=== PATIENT | male | born 1970 | race Caucasian/White ===

== ENCOUNTER 2019-01-24 17:43 | Emergency (ER) | payer OTHER, MEDICAID ==
[~2019-01-24] VITALS: Ht 182.9 cm; Wt 65.9 kg
[2019-01-24 17:53] VITALS: Ht 182.9 cm; Wt 65.9 kg
[2019-01-24] MEDS ORDERED: PRO AIR PO (17:56)
[2019-01-24] MEDS ORDERED: IPRAT-ALBUT 0.5-3 ML UPD (17:56)
[2019-01-24] MEDS ORDERED: FLUTICASONE PRO16 GM NASAL (17:56)
[2019-01-24] MEDS ORDERED: SYMBICORT 16010.2 GM INH (17:56)
[2019-01-24 18:32] LABS: BASOPHILS 0.7 % (0-2); EOSINOPHILS 2.2 % (0-7); HEMATOCRIT 51.3 % (42.0-54.0); HEMOGLOBIN 17.8 g/dL (13.5-17.5); IMMATURE GRANULOCYTES 0.7 % (0-5); LYMPHOCYTES 22.8 % (15-50); MCH 31.5 pg (26.0-34.0); MCHC 34.7 g/dL (31.0-37.0); MCV 90.8 fL (80.0-100.0); MEAN PLATELET VOLUME 11.4 fL (7.4-10.4); MONOCYTES 8.4 % (2-11); NEUTROPHILS 65.2 % (40-80); PLATELET COUNT 198 10x3/uL (130-400); RBC 5.65 10x6/uL (4.20-6.10); RDW 14.6 % (11.5-14.5); WBC 11.9 10x3/uL (4.8-10.8)
[2019-01-24 18:49] LABS: ALBUMIN 3.8 g/dL (3.4-5.0); ANION GAP 12.7 mmol/L (8-16); BILIRUBIN - TOTAL 0.17 mg/dL (0.2-1.3); CREATININE - SERUM 1.6 mg/dL (0.6-1.3); POTASSIUM - SERUM 3.7 mmol/L (3.5-5.1); PROTEIN - SERUM 7.2 g/dL (6.4-8.2)
[2019-01-24 19:20] LABS: CREATINE KINASE 115 UL (21-232); LIPASE 219 U/L (73-393)
[2019-01-24] MEDS ORDERED: FLAGYL500 MG PO (20:35)
[2019-01-24 20:41] LABS: APPEARANCE CLEAR (CLEAR); BILIRUBIN NEGATIVE (NEGATIVE); COLOR YELLOW (YELLOW); GLUCOSE NEGATIVE (NEGATIVE); KETONE NEGATIVE (NEGATIVE); NITRITE NEGATIVE (NEGATIVE); PROTEIN NEGATIVE (NEGATIVE); UROBILINOGEN NORMAL (NORMAL)
[2019-01-24 22:05] VITALS: BP 97/69
[2019-01-26] MEDS ORDERED: LEVOFLOXACIN500 MG PO (19:21)
[2019-01-26] MEDS ORDERED: MEDROL DOSE PACK4 MG PO (19:21)
[2019-01-26] MEDS ORDERED: MUCINEX600 MG PO (19:21)
== END 2019-01-24 22:06 | disposition other institution (70) ==
LOC: D.ER 17:43
PROVIDERS: Family Medicine
DX: K52.9 Noninfective gastroenteritis and colitis, unspecified (principal); R10.32 Left lower quadrant pain; R10.31 Right lower quadrant pain; E88.01 Alpha-1-antitrypsin deficiency; R03.1 Nonspecific low blood-pressure reading

== ENCOUNTER → 2019-01-26 | Emergency (ER) | payer OTHER, MEDICAID ==
[~2019-01-26] VITALS: Ht 182.9 cm; Wt 61.4 kg
[~2019-01-26] MED LIST: FLAGYL500 MG PO; FLUTICASONE PRO16 GM NASAL; IPRAT-ALBUT 0.5-3 ML UPD; LEVOFLOXACIN500 MG PO; MEDROL DOSE PACK4 MG PO; MUCINEX600 MG PO; PRO AIR PO; SYMBICORT 16010.2 GM INH
[2019-01-26 18:29] VITALS: Ht 182.9 cm; Wt 61.4 kg
[2019-01-26 19:56] LABS: APPEARANCE CLEAR (CLEAR); BILIRUBIN NEGATIVE (NEGATIVE); COLOR YELLOW (YELLOW); GLUCOSE NEGATIVE (NEGATIVE); KETONE NEGATIVE (NEGATIVE); NITRITE NEGATIVE (NEGATIVE); PROTEIN NEGATIVE (NEGATIVE); UROBILINOGEN NORMAL (NORMAL); WHITE CELLS - URINE OCC /hpf (0-5)
[2019-01-26 20:04] LABS: BASOPHILS 0.7 % (0-2); EOSINOPHILS 0.8 % (0-7); HEMATOCRIT 51.7 % (42.0-54.0); HEMOGLOBIN 17.9 g/dL (13.5-17.5); IMMATURE GRANULOCYTES 0.5 % (0-5); LYMPHOCYTES 18.6 % (15-50); MCH 31.2 pg (26.0-34.0); MCHC 34.6 g/dL (31.0-37.0); MCV 90.2 fL (80.0-100.0); MEAN PLATELET VOLUME 11.3 fL (7.4-10.4); NEUTROPHILS 69.4 % (40-80); RBC 5.73 10x6/uL (4.20-6.10); RDW 14.8 % (11.5-14.5); WBC 9.1 10x3/uL (4.8-10.8)
[2019-01-26 20:11] LABS: PLATELET COUNT 154 10x3/uL (130-400)
[2019-01-26 20:12] LABS: APTT 28.8 SECONDS (22.8-39.4); PROTIME 12.7 SECONDS (11.6-15.0)
[2019-01-26 20:29] LABS: ALBUMIN 4.7 g/dL (3.4-5.0); ALKALINE PHOSPHATASE 92 U/L (46-116); ALT (SGPT) 13 U/L (10-68); BILIRUBIN - TOTAL 0.28 mg/dL (0.2-1.3); CALC OSMOLALITY 282 mosm/kg (275-300); CALCIUM 9.4 mg/dL (8.5-10.1); CARBON DIOXIDE 31.4 mmol/L (21.0-32.0); CHLORIDE - SERUM 99 mmol/L (98-107); CREATININE - SERUM 1.2 mg/dL (0.6-1.3); GLUCOSE 104 mg/dL (74-106); POTASSIUM - SERUM 3.5 mmol/L (3.5-5.1); PROTEIN - SERUM 8.1 g/dL (6.4-8.2); SODIUM 141 mmol/L (136-145); UREA NITROGEN 18 mg/dL (7-18); eGFR NON AFRICAN AMERICAN 68 mL/min (90-120)
[2019-01-26 20:40] LABS: CKMB 1.9 U/L (0.0-3.6); CREATINE KINASE 147 UL (21-232); PRO BNP 25 pg/mL (0-125); TROPONIN-I < 0.017 ng/mL (0.000-0.060)
[2019-01-26 20:59] VITALS: BP 124/83
== END | disposition home or self-care (01) ==
LOC: D.ER 18:23
PROVIDERS: Emergency Medicine
DX: J44.9 Chronic obstructive pulmonary disease, unspecified (principal)

== ENCOUNTER 2019-02-19 19:29 | Inpatient (IN) | payer OTHER, MEDICAID ==
[2019-02-19] MEDS ORDERED: STERAPRED 5MG 125 MG PO (19:38)
[2019-02-19] MEDS ORDERED: AMBIEN5 MG PO (19:38)
[2019-02-19] MEDS ORDERED: TYLENOL #4 W/CO1 TAB PO (19:38)
[2019-02-19 20:08] LABS: BASOPHILS 0 % (0-2); EOSINOPHILS 0 % (0-7); HEMATOCRIT 48.6 % (42.0-54.0); HEMOGLOBIN 16.7 g/dL (13.5-17.5); IMMATURE GRANULOCYTES 0.5 % (0-5); LYMPHOCYTES 9.6 % (15-50); MCH 31.5 pg (26.0-34.0); MCHC 34.4 g/dL (31.0-37.0); MCV 91.7 fL (80.0-100.0); MEAN PLATELET VOLUME 11.6 fL (7.4-10.4); MONOCYTES 7.3 % (2-11); NEUTROPHILS 82.6 % (40-80); PLATELET COUNT 156 10x3/uL (130-400); RDW 15.3 % (11.5-14.5); WBC 11.1 10x3/uL (4.8-10.8)
[2019-02-19 20:15] LABS: INR 1.08 (0.85-1.17); PROTIME 13.5 SECONDS (11.6-15.0)
[2019-02-19 20:17] LABS: D-DIMER-QUANTITATIVE 0.6 ug/mLFEU (0.20-0.54)
[2019-02-19 20:20] LABS: ALKALINE PHOSPHATASE 71 U/L (46-116); ALT (SGPT) 12 U/L (10-68); BILIRUBIN - TOTAL 0.33 mg/dL (0.2-1.3); CALC OSMOLALITY 287 mosm/kg (275-300); CALCIUM 8.9 mg/dL (8.5-10.1); CHLORIDE - SERUM 104 mmol/L (98-107); CREATININE - SERUM 2.1 mg/dL (0.6-1.3); GLUCOSE 121 mg/dL (74-106); PROTEIN - SERUM 7.3 g/dL (6.4-8.2); SODIUM 142 mmol/L (136-145); UREA NITROGEN 23 mg/dL (7-18); eGFR NON AFRICAN AMERICAN 36 mL/min (90-120)
[2019-02-19 20:30] VITALS: BP 91/67
[2019-02-19 20:31] LABS: CREATINE KINASE 154 UL (21-232); PRO BNP 99 pg/mL (0-125)
[2019-02-19 20:32] LABS: TROPONIN-I < 0.017 ng/mL (0.000-0.060)
[2019-02-20] VITALS: BP 96/59
--- NOTE | 2019-02-20 02:00 | NUR ---
IV RESITED TO R HAND. OLD IV REMOVED WITH CATH TIP INTACT.
[2019-02-20 02:36] VITALS: BP 114/57; BMI 18.3
[2019-02-20 03:00] VITALS: BP 96/57
--- NOTE | 2019-02-20 03:02 | NUR ---
I have reviewed this patient and I concur with the Shift Assessment completed by the Licensed Practical Nurse today this shift.
--- NOTE | 2019-02-20 07:00 | NUR ---
RECEIVED REPORT. ASSUMED CARE OF PATIENT. PATIENT WITH EYES CLOSED, RESTING ON RIGHT LATERAL SIDE. RESP EVEN AND UNLABORED, CALL LIGHT WITHIN REACH. NO DISTRESS.
[2019-02-20 07:56] LABS: BASOPHILS 0 % (0-2); EOSINOPHILS 0 % (0-7); HEMATOCRIT 45.5 % (42.0-54.0); HEMOGLOBIN 15.8 g/dL (13.5-17.5); IMMATURE GRANULOCYTES 0.4 % (0-5); LYMPHOCYTES 9.2 % (15-50); MCH 31.3 pg (26.0-34.0); MCHC 34.7 g/dL (31.0-37.0); MCV 90.3 fL (80.0-100.0); MEAN PLATELET VOLUME 11.4 fL (7.4-10.4); MONOCYTES 3.9 % (2-11); NEUTROPHILS 86.5 % (40-80); PLATELET COUNT 158 10x3/uL (130-400); RBC 5.04 10x6/uL (4.20-6.10); RDW 15.2 % (11.5-14.5)
[2019-02-20 08:03] LABS: WBC 7.6 10x3/uL (4.8-10.8)
[2019-02-20 08:24] LABS: ANION GAP 23.8 mmol/L (8-16); CALCIUM 9.1 mg/dL (8.5-10.1); CREATININE - SERUM 2.1 mg/dL (0.6-1.3); POTASSIUM - SERUM 4.2 mmol/L (3.5-5.1)
[2019-02-20 08:26] LABS: CARBON DIOXIDE 20.4 mmol/L (21.0-32.0)
[2019-02-20 08:32] VITALS: BP 93/55
[2019-02-20 12:27] VITALS: BP 108/61
--- NOTE | 2019-02-20 12:39 | NUR ---
OBTAINED NEW ORDER FOR REGULAR DIET AT 1220 FROM DARRIUS DE ANDA.
--- NOTE | 2019-02-20 15:24 | NUR ---
ULTRASOUND AT BEDSIDE COMPLETING ECHO AT THIS TIME. NO DISTRESS.
--- NOTE | 2019-02-20 17:07 | NUR ---
PATIENT OFF UNIT TO NUCLEAR IMAGING AT THIS TIME FOR SCAN.
--- NOTE | 2019-02-20 17:19 | NUR ---
RETURNED FROM IMAGING AT THIS TIME. NO DISTRESS. CONSUMING PM MEAL.
--- NOTE | 2019-02-20 17:52 | NUR ---
MEDICATED FOR PAIN FOR INGUINAL HERNIA AT THIS TIME. NO DISTRESS.
--- NOTE | 2019-02-20 18:30 | NUR ---
RESTING IN BED. NO DISTRESS. CALL LIGHT PREETHI ANGULO.
--- NOTE | 2019-02-20 19:05 | NUR ---
PT ON PHONE AND SIGNALS ME OUT OF ROOM
--- NOTE | 2019-02-20 20:14 | NUR ---
RETURN TO EXAMINE PT LCTA AND SKIN WARM AND DRY IV TO RT HAND IS WNL...BED IS LOCKED LOW AND CALL LIGHT IS IN REACH
[2019-02-20 20:26] VITALS: BP 113/70
--- NOTE | 2019-02-21 03:19 | NUR ---
I have reviewed this patient and I concur with the Shift Assessment completed by the Licensed Practical Nurse today this shift.
[2019-02-21 05:55] VITALS: BP 95/56
[2019-02-21 08:08] VITALS: BP 117/66
[2019-02-21] MEDS ORDERED: KLONOPIN1 MG PO (11:27)
[2019-02-21 12:08] VITALS: BP 100/58
[2019-02-21 13:16] VITALS: BMI 18.7
--- NOTE | 2019-02-21 19:03 | MORECARE ---
CASE MANAGEMENT DISCHARGE SUMMARY PATIENT: MARILU SINGH UNIT: [id number] ADM DATE: 02/19/19 AGE: 49 : 68 SEX: M ROOM/BED: D.2136 AUTHOR: SHALONDA RAMOS PHYSICIAN: REFERRING PHYSICIAN: OLIVIA PHILIPPE MD DATE OF SERVICE: 02/21/19 Discharge Plan Patient Name: MARILU SINGH [facility] [facility] 1970 Planned Disposition: Home Anticipated Discharge Date: Discharge Date: Expected LOS: Initial Reviewer: [email or web address] Initial Review Date: 02/20/2019 Generated: 02/21/19 8:03 pm DCPIA - Discharge Planning Initial Assessment Updated by [email or web address]: Marta Jones on 02/21/19 7:03 pm * Is the patient Alert and Oriented? Yes * How many steps to enter\exit or inside your home? 2 w/ rail * PCP DR Bess Yoon * Pharmacy [facility] in [place] Will have mail order service soon * Preadmission Environment Home with Family * ADLs Independent * Equipment Nebulizer Oxygen * Other Equipment stationary and portable oxygen units * List name and contact numbers for known caregivers / representatives who currently or will assist patient after discharge: [facility]- [phone] * Verbal permission to speak to the caregivers and representatives has been obtained from the patient. No * Community resources currently utilized None * Please name any agencies selected above. N/A * Additional services required to return to the preadmission environment? No * Can the patient safely return to the preadmission environment? Yes * Has this patient been hospitalized within the prior 30 days at any hospital? Yes Patient Name: MARILU SINGH Page 55093 at 1903 All edits/amendments must be made on the electronic document DICTATION DATE: 02/21/191901 METAL NUMERICAL TOOL PROGRAMMER: GOVIND 02/21/191901 RPT#: [id number] DC DATE: STATUS: ADM IN [facility] [address] [place] [address] END OF REPORT
--- NOTE | 2019-02-21 19:23 | MORECARE ---
CASE MANAGEMENT DISCHARGE SUMMARY PATIENT: MARILU SINGH UNIT: [id number] ADM DATE: 02/19/19 AGE: 49 : 68 SEX: M ROOM/BED: D.2136 AUTHOR: RACHEL,DOC PHYSICIAN: REFERRING PHYSICIAN: OLIVIA PHILIPPE MD DATE OF SERVICE: 02/21/19 Discharge Plan Patient Name: MARILU SINGH Facility: [facility]:[place] : 1970 Planned Disposition: Home Anticipated Discharge Date: Discharge Date: Expected LOS: Initial Reviewer: [email or web address] Initial Review Date: 02/20/2019 Generated: 02/21/19 8:23 pm Comments DCP- Discharge Planning Updated by [email or web address]: Marta Jones on 02/21/19 6:[address] CM MET WITH THE PATIENT AT HIS BEDSIDE. EXPLAINED CM ROLE AND REQUESTED PERMISSION TO PROCEED WITH THE ASSESSMENT. PATIENT GAVE PERMISSION. PATIENT LIVES IN [place] WITH HIS . SHE IS RECOVERING FROM HIP SURGERY. HE DOES NOT UTILIZE AND H/H OR COMMUNITY SERVICES. THERE ARE 2 STEPS TO ENTER HIS HOME W/ A RAILING. HE IS INDEPENDENT IN HIS CARE. ASSIST WITH COOKING AND CLEANING. HE HAS A SON, WALLY, WHO ASSIST WHEN HE CAN. HE LIVES IN [place]. THE SON AND HIS AND HIS FAMILY WERE VACATIONING IN [place]. THEY ARE RETURNING TO HOME. THE PATIENT WAS RECENTLY DISCHARGED FROM [facility] IN [place]. HE WAS MOWING HIS YARD POST DISCHARGE.AND HAD RETURN OF SX'S. PATIENT HAS PORTABLE AND STATIONARY OXYGEN UNITS AND NEBULIZER FOR DUONEB UPDRAFTS. HE IS ON NASAL O2 AT 2/L AT HOME. DME PROVIDER - [facility] IN [place] , NEAR THE HOSPITAL. PCP- DR ANDERS [facility]YE[facility] [place] PATIENT DOES NOT FEEL HE WILL REQUIRE ANY SERVICES AT DISCHARGE. HIS SISTER OR A FRIEND IN [place] CAN PROVIDE TRANSPORTATION TO HOME. HE IS ANXIOUS TO DISCHARGE TO HOMEAS HE IS CONCERNED ABOUT HIS . HE IS WELL INFORMED ABOUT HIS DX AND MEDICAL CARE. CM WILL FOLLOW TO ASSIST NEEDED. DCPIA - Discharge Planning Initial Assessment Updated by [email or web address]: Marta Jones on 02/21/19 7:03 pm * Is the patient Alert and Oriented? Yes * How many steps to enter\exit or inside your home? 2 w/ rail * PCP DR Anders Yoon * Pharmacy [facility] in [place] Will have mail order service soon * Preadmission Environment Home with Family * ADLs Independent * Equipment Nebulizer Oxygen * Other Equipment stationary and portable oxygen units * List name and contact numbers for known caregivers / representatives who currently or will assist patient after discharge: Wally cunha- [phone] * Verbal permission to speak to the caregivers and representatives has been obtained from the patient. No * Community resources currently utilized None * Please name any agencies selected above. N/A * Additional services required to return to the preadmission environment? No * Can the patient safely return to the preadmission environment? Yes * Has this patient been hospitalized within the prior 30 days at any hospital? Yes Last DP export: 02/21/19 6:03 p Patient Name: MARILU SINGH Page [id number] at 1923 All edits/amendments must be made on the electronic document DICTATION DATE: 02/21/191921 SOCIAL MEDIA SR STRATEGY MANAGER: GOVIND 02/21/191921 RPT#: [id number] DC DATE: STATUS: ADM IN [facility] [address] [place] [address] END OF REPORT
[2019-02-21 22:04] VITALS: BP 120/57
[2019-02-22 00:04] VITALS: BP 117/71
--- NOTE | 2019-02-22 03:00 | NUR ---
PT STATES CHEST PAIN 8 OUT OF 10. PT VITALS STABLE. PT HAS SOME SOB. WILL CALL DOCTOR. WILL FALLOW UP.
--- NOTE | 2019-02-22 03:45 | NUR ---
MORPHINE GIVEN FOR CHEST PAIN PER DR ORDER. CARDIAC WORK UP ORDER PUT IN FOR LAB. EKG IN PROCESS. WILL FALLOW UP.
--- NOTE | 2019-02-22 04:28 | NUR ---
I have reviewed this patient and I concur with the Shift Assessment completed by the Licensed Practical Nurse today this shift.
[2019-02-22 05:42] LABS: BASOPHILS 0 % (0-2); EOSINOPHILS 0 % (0-7); HEMATOCRIT 42.2 % (42.0-54.0); HEMOGLOBIN 14.2 g/dL (13.5-17.5); IMMATURE GRANULOCYTES 0.3 % (0-5); LYMPHOCYTES 4.7 % (15-50); MCH 30.3 pg (26.0-34.0); MCHC 33.6 g/dL (31.0-37.0); MEAN PLATELET VOLUME 11.4 fL (7.4-10.4); MONOCYTES 4.6 % (2-11); NEUTROPHILS 90.4 % (40-80); PLATELET COUNT 130 10x3/uL (130-400); RBC 4.69 10x6/uL (4.20-6.10); RDW 14.7 % (11.5-14.5)
[2019-02-22 05:55] VITALS: BP 112/54
[2019-02-22 06:25] LABS: WBC 12.1 10x3/uL (4.8-10.8)
--- NOTE | 2019-02-22 07:00 | NUR ---
RECEIVED REPORT. ASSUMED CARE OF PATIENT. NO DISTRESS. PATIENT STATES HE GOT HIS IV CAUGHT ON THE DOOR. CATHETER TIP DISLODGED. NO BLEEDING. CALL LIGHT WITHIN REACH. NO DISTRESS.
[2019-02-22 07:04] LABS: ALBUMIN 3.4 g/dL (3.4-5.0); ALKALINE PHOSPHATASE 57 U/L (46-116); ALT (SGPT) 16 U/L (10-68); BILIRUBIN - TOTAL 0.36 mg/dL (0.2-1.3); CALCIUM 8.7 mg/dL (8.5-10.1); CARBON DIOXIDE 25.4 mmol/L (21.0-32.0); CHLORIDE - SERUM 102 mmol/L (98-107); POTASSIUM - SERUM 3.9 mmol/L (3.5-5.1); PROTEIN - SERUM 6.3 g/dL (6.4-8.2); SODIUM 139 mmol/L (136-145); UREA NITROGEN 19 mg/dL (7-18); eGFR NON AFRICAN AMERICAN 75 mL/min (90-120)
[2019-02-22 07:08] LABS: CALC OSMOLALITY 284 mosm/kg (275-300); CREATININE - SERUM 1.1 mg/dL (0.6-1.3); GLUCOSE 180 mg/dL (74-106)
[2019-02-22 07:18] LABS: CREATINE KINASE 107 UL (21-232); TROPONIN-I < 0.017 ng/mL (0.000-0.060)
--- NOTE | 2019-02-22 07:20 | NUR ---
20 GAUGE REMOVED FROM RIGHT HAND PATIENT DISLODGED CATHETER. CATHETER TIP INTACT. NO BLEEDING FROM SITE. 2X2 GAUZE APPLIED AND SECURED WITH TAPE. 20 GAUGE IV PLACED TO RIGHT FOREARM X 1 STICK. GOOD BLOOD RETURN, EASY FLUSH. TOLERATED IV PLACEMENT WELL. TAPED, DATED,AND SECURED. NO DISTRESS. RESTING IN BED, AWAITING ON AM MEAL.
[2019-02-22 07:42] VITALS: BP 107/56
--- NOTE | 2019-02-22 11:19 | NUR ---
RESTING IN BED. SHOWER COMPLETE. NO DISTRESS. CALL LIGHT WITHIN REACH. WAITING FOR DISCHARGE INSTRUCTIONS FROM PRIMARY.
[2019-02-22 11:25] VITALS: BP 117/73
[2019-02-22 11:37] LABS: CKMB 1.5 U/L (0.0-3.6); CREATINE KINASE 125 UL (21-232); TROPONIN-I < 0.017 ng/mL (0.000-0.060)
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
--- NOTE | 2019-02-22 12:03 | NUR ---
KIRBY IS PUTTING IN DISCHARGE ORDER FOR PATIENT AT THIS TIME.
[2019-02-22] MEDS ORDERED: MUCINEX DM ER1 EAC1 PO (12:15)
[2019-02-22] MEDS ORDERED: TESSALON PERLE100 MG PO (12:15)
[2019-02-22] MEDS ORDERED: SINGULAIR10 MG PO (12:15)
[2019-02-22] MEDS ORDERED: PREDNISONE10 MG PO (12:17)
[2019-02-22] MEDS ORDERED: ALBUTEROL SULF8.5 GM INH (12:17)
--- NOTE | 2019-02-22 12:33 | NUR ---
PATIENT LEFT AMA. PATIENT NOT IN ROOM, TELEMETRY ON BED ALONG WITH SCRUBS THAT PATIENT BORROWED FROM HOSPITAL. PATIENT FOUND DOWNSTAIRS SITTING ON BENCH OUT FRONT OF HOSPITAL. PATIENT STATED HE HAS A RIDE COMING TO PICK HIM UP. PATIENT TOOK HIS OWN IV OUT OF RIGHT FOREARM AND PLACED IT IN THE TRASH. THIS WIRE DRAWING SETTER FOUND IV IN TRASH. CATHETER TIP INTACT. HAND MOLD MAKER AND CHARGE NURSE AWARE OF PATIENT LEAVING AMA.
--- NOTE | 2019-02-22 13:57 | MORECARE ---
CASE MANAGEMENT DISCHARGE SUMMARY PATIENT: MARILU SINGH UNIT: [id number] ADM DATE: 02/19/19 AGE: 49 : 68 SEX: M ROOM/BED: D.2136 AUTHOR: RACHEL,DOC PHYSICIAN: REFERRING PHYSICIAN: OLIVIA PHILIPPE MD DATE OF SERVICE: 02/22/19 Discharge Plan Patient Name: MARILU SINGH Facility: [facility]:[place] : 1970 Planned Disposition: Home Anticipated Discharge Date: 02/22/19 Discharge Date: 02/22/2019 Expected LOS: 3 Initial Reviewer: [email or web address] Initial Review Date: 02/20/2019 Generated: 02/22/19 2:57 pm Comments DCP- Discharge Planning Updated by [id number]: Jose Elias Rudd on 02/22/19 12:[address] Patient Name: MARILU SINGH Encounter No: [id number] : 1970 Primary Insurance: [id number] Anticipated DC Date: 02-22-2019 Planned Disposition: LEFT AGAINST MEDICAL ADVICE DCP follow-up note: CM RECEIVED DISCHARGE ORDER, ATTEMPTED TO MEET WITH PT IN REGARDS TO ANY NEEDS FOR DISCHARGE HOME AND PROVIDE IMPORTANT MESSAGE FROM MEDICARE. PT WAS NOT IN ROOM. CM ADVISED BY NURSE THAT PT HAS REMOVED HIS IV AND LEFT BEFORE RECEIVING DISCHARGE PAPERS HE DID NOT WANT TO MISS HIS RIDE HOME TODAY. Jose Elias Rudd, CASE MANAGMENT DCP- Discharge Planning Updated by [email or web address]: Marta Jones on 02/21/19 6:[address] CM MET WITH THE PATIENT AT HIS BEDSIDE. EXPLAINED CM ROLE AND REQUESTED PERMISSION TO PROCEED WITH THE ASSESSMENT. PATIENT GAVE PERMISSION. PATIENT LIVES IN [place] WITH HIS . SHE IS RECOVERING FROM HIP SURGERY. HE DOES NOT UTILIZE AND H/H OR COMMUNITY SERVICES. THERE ARE 2 STEPS TO ENTER HIS HOME W/ A RAILING. HE IS INDEPENDENT IN HIS CARE. ASSIST WITH COOKING AND CLEANING. HE HAS A SON, WALLY, WHO ASSIST WHEN HE CAN. HE LIVES IN [place]. THE SON AND HIS AND HIS FAMILY WERE VACATIONING IN [place]. THEY ARE RETURNING TO HOME. THE PATIENT WAS RECENTLY DISCHARGED FROM [facility] IN [place]. HE WAS MOWING HIS YARD POST DISCHARGE.AND HAD RETURN OF SX'S. PATIENT HAS PORTABLE AND STATIONARY OXYGEN UNITS AND NEBULIZER FOR DUONEB UPDRAFTS. HE IS ON NASAL O2 AT 2/L AT HOME. DME PROVIDER - [facility] IN [place] , [place] THE HOSPITAL. PCP- DR ANDERS FRYE- [facility] IN [place] PATIENT DOES NOT FEEL HE WILL REQUIRE ANY SERVICES AT DISCHARGE. HIS SISTER OR A FRIEND IN [place] CAN PROVIDE TRANSPORTATION TO HOME. HE IS ANXIOUS TO DISCHARGE TO HOMEAS HE IS CONCERNED ABOUT HIS . HE IS WELL INFORMED ABOUT HIS DX AND MEDICAL CARE. CM WILL FOLLOW TO ASSIST NEEDED. DCPIA - Discharge Planning Initial Assessment Updated by [email or web address]: Marta Jones on 02/21/19 7:03 pm * Is the patient Alert and Oriented? Yes * How many steps to enter\exit or inside your home? 2 w/ rail * PCP DR Anders Yoon * Pharmacy [facility] in [place] Will have mail order service soon * Preadmission Environment Home with Family * ADLs Independent * Equipment Nebulizer Oxygen * Other Equipment stationary and portable oxygen units * List name and contact numbers for known caregivers / representatives who currently or will assist patient after discharge: Wally cunha- [phone] * Verbal permission to speak to the caregivers and representatives has been obtained from the patient. No * Community resources currently utilized None * Please name any agencies selected above. N/A * Additional services required to return to the preadmission environment? No * Can the patient safely return to the preadmission environment? Yes * Has this patient been hospitalized within the prior 30 days at any hospital? Yes Last DP export: 02/21/19 6:23 p Patient Name: MARILU SINGH Page 77635 at 1357 All edits/amendments must be made on the electronic document DICTATION DATE: 02/22/19 1357 ROTATING FIELD ASSEMBLER: GOVIND 02/22/19 1357 RPT#: [id number] DC DATE:02/22/19 STATUS: DIS IN [facility] [address] [place] [address] END OF REPORT
[2019-02-22] MEDS ORDERED: ZITHROMAX250 MG PO (16:01)
--- NOTE | 2019-02-23 10:39 | EC ---
PATIENT:MARILU SINGH DATE OF SERVICE: 02/19/19 SEX: M MEDICAL RECORD: [id number] DATE OF : 68 LOCATION:D.M2 D.213 AGE OF PATIENT: 49 ADMISSION DATE: 02/19/19 REFERRING PHYSICIAN: INTERPRETING PHYSICIAN: TAMMIE SCHMIDT MD ECHOCARDIOGRAM REPORT ECHO CHARGES 4 ECHO COMPLETE Date: 02/20/19 CLINICAL DIAGNOSIS: ECHOCARDIOGRAPHIC MEASUREMENTS (adult normal given) AC root (d.<3.7cm) 3.5 cm LV Septum d (<1.2 cm> 1.0 cm Valve Excursion 2.5 cm LV Septum (systole) 1.4 cm Left Atria (s.<4.0cm> 2.3 cm LVPW d(<1.2cm) 1.0 cm RV (d.<2.3cm) 2.0 cm LVPW (sytole) 1.9 cm LV diastole(<5.6CM) 4.6 cm MV E-F(>70mm/sec) cm LV systole 1.9 cm LVOT Diameter 1.8 cm MV exc.(>10mm) cm Est.ejection fraction (50-75%) % DOPPLER: LVIT cm/sec A 37.0 cm/sec E 74.0 cm/sec LA cm/sec RVSP 20.2 mmHg LVOT 87.0 cm/sec AOP1/2T m/s Asc. Ao 108 cm/sec RVOT 101 cm/sec RA cm/sec PA 112 cm/sec AV Gradient Peak 4.6 mmHg AV Mean 2.4 mmHg AV Area 2.2 cm MV Gradient Peak 2.9 mmHg MV Mean 1.0 mmHg MV Area cm COMMENTS: Commissions Specialist: 1 CHANTELL OLVERAOE Artificial Inseminator: 1 Dr. Schmidt TAPE# PACS Pericardial Effusion N DATE OF SERVICE: FINDINGS: 1. Left ventricular chamber size is within normal limits. Left ventricular systolic function is normal. Overall ejection fraction estimated at 60%. 2. Left atrium, right atrium and right ventricular chamber sizes are within normal limits. 3. Valvular structures have normal structure and motion. 4. Doppler interrogation reveals no significant valvular insufficiency or stenosis. Pulmonary systolic pressure is normal estimated at 20 mmHg. ECHOCARDIOGRAM REPORT [id number] MARILU SINGH 5. No evidence of pericardial effusion or left ventricular thrombus. TRANSINT:[id number] Voice Confirmation ID: [id number] DOCUMENT ID: [id number] TAMMIE SCHMIDT MD at 1039 CC: [id number] DICTATION DATE: 02/21/19 1217 HOSIERY BAGGER: 02/21/19 1416 DIS IN 02/22/19 [place] [id number] [place] [id number]
[2019-03-03 03:07] LABS: IMMUNOGLOBULIN E 938 IU/mL (6-495)
== END 2019-02-22 13:08 | disposition home or self-care (01) | DRG 189 ==
LOC: D.ER 19:29 → D.M2 20:41
PROVIDERS: Family Medicine; Family Medicine Adult Medicine; Internal Medicine Pulmonary Disease; ADMIT Internal Medicine Nephrology; ATTEND Internal Medicine Nephrology
DX: J96.21 Acute and chronic respiratory failure with hypoxia (principal); J44.1 Chronic obstructive pulmonary disease with (acute) exacerbation; N17.9 Acute kidney failure, unspecified; B19.10 Unspecified viral hepatitis B without hepatic coma; K51.90 Ulcerative colitis, unspecified, without complications; F17.213 Nicotine dependence, cigarettes, with withdrawal; J44.0 Chronic obstructive pulmonary disease with (acute) lower respiratory infection; Z99.81 Dependence on supplemental oxygen; J20.9 Acute bronchitis, unspecified; R55 Syncope and collapse; E88.01 Alpha-1-antitrypsin deficiency; J30.9 Allergic rhinitis, unspecified; N18.9 Chronic kidney disease, unspecified; K21.9 Gastro-esophageal reflux disease without esophagitis; K74.60 Unspecified cirrhosis of liver

== ENCOUNTER 2019-03-24 14:41 | Emergency (ER) | payer OTHER, MEDICAID ==
[~2019-03-24] VITALS: Ht 182.9 cm; Wt 63.6 kg
[~2019-03-24 14:41] MED LIST changes: +ALBUTEROL SULF8.5 GM INH; +AMBIEN5 MG PO; +KLONOPIN1 MG PO; +MUCINEX DM ER1 EAC1 PO; +PREDNISONE10 MG PO; +SINGULAIR10 MG PO; +STERAPRED 5MG 125 MG PO; +TESSALON PERLE100 MG PO; +TYLENOL #4 W/CO1 TAB PO; +ZITHROMAX250 MG PO
[2019-03-24 14:51] VITALS: Ht 182.9 cm; Wt 63.6 kg
[2019-03-24 15:33] LABS: BASOPHILS 0.3 % (0-2); EOSINOPHILS 1.4 % (0-7); HEMATOCRIT 44.2 % (42.0-54.0); HEMOGLOBIN 15.5 g/dL (13.5-17.5); IMMATURE GRANULOCYTES 0.8 % (0-5); LYMPHOCYTES 5.6 % (15-50); MCH 31.4 pg (26.0-34.0); MCHC 35.1 g/dL (31.0-37.0); MCV 89.5 fL (80.0-100.0); MEAN PLATELET VOLUME 10.8 fL (7.4-10.4); MONOCYTES 6.2 % (2-11); NEUTROPHILS 85.7 % (40-80); PLATELET COUNT 149 10x3/uL (130-400); RBC 4.94 10x6/uL (4.20-6.10); RDW 14.8 % (11.5-14.5); WBC 9.1 10x3/uL (4.8-10.8)
[2019-03-24 15:56] LABS: ALBUMIN 3.4 g/dL (3.4-5.0); ALKALINE PHOSPHATASE 102 U/L (46-116); ALT (SGPT) 10 U/L (10-68); BILIRUBIN - TOTAL 0.54 mg/dL (0.2-1.3); CALC OSMOLALITY 273 mosm/kg (275-300); CALCIUM 8.6 mg/dL (8.5-10.1); CARBON DIOXIDE 23.9 mmol/L (21.0-32.0); CHLORIDE - SERUM 99 mmol/L (98-107); CREATININE - SERUM 1.2 mg/dL (0.6-1.3); POTASSIUM - SERUM 3.9 mmol/L (3.5-5.1); PROTEIN - SERUM 7.2 g/dL (6.4-8.2); SODIUM 135 mmol/L (136-145); UREA NITROGEN 24 mg/dL (7-18); eGFR NON AFRICAN AMERICAN 68 mL/min (90-120)
[2019-03-24 15:59] LABS: GLUCOSE 102 mg/dL (74-106)
[2019-03-24 16:08] LABS: CKMB 0.5 U/L (0.0-3.6); CREATINE KINASE 71 UL (21-232); PRO BNP 24 pg/mL (0-125)
[2019-03-24 16:11] LABS: TROPONIN-I < 0.017 ng/mL (0.000-0.060)
[2019-03-24 16:29] LABS: APTT 34.4 SECONDS (22.8-39.4); INR 1.08 (0.85-1.17); PROTIME 13.5 SECONDS (11.6-15.0)
[2019-03-24 21:28] VITALS: BP 103/64
== END 2019-03-24 21:28 | disposition home or self-care (01) ==
LOC: D.ER 14:41
PROVIDERS: Emergency Medicine
DX: R42 Dizziness and giddiness (principal); E88.01 Alpha-1-antitrypsin deficiency; K74.60 Unspecified cirrhosis of liver; J44.9 Chronic obstructive pulmonary disease, unspecified; R53.1 Weakness